=== PATIENT | male | born 1955 | race Caucasian/White ===

== ENCOUNTER 2024-08-20 21:06 | Inpatient (IN) | payer OTHER ==
[2024-08-20 21:53] LABS: Bilirubin Neg (Negative); Blood, Urine 150 (Negative); Clarity Cloudy (Clear); Glucose, Urine (Dipstick) >=1000 mg/dL (Negative); Ketone, Urine 5 mg/dL (Negative); Leukocyte 500 (Negative); Nitrite Negative (Negative); Protein, Urine (Dipstick) 100 mg/dl (Neg-Trace); Specific Gravity, Urine 1.025 (1.005-1.030); Urobilinogen Normal mg/dL (Less than 2)
[2024-08-20 22:11] LABS: Bacteria/HPF 4+ HPF (None Seen); CAUTI Indications for Culture Dysuria,urgency,freq; Squamous Epithelial 0-3 HPF (0-3); Urine Culture Reflex Yes Yes; WBC/HPF Greater than 50 HPF (0-3)
[2024-08-20 22:35] LABS: #Basophils 0.03 10x3/uL (0.0-0.2); #Eosinophils 0.02 10x3/uL (0.0-0.5); #Monocytes 1.93 10x3/uL (0.0-1.1); #Neutrophils 17.09 10x3/uL (1.5-8.4); %Basophils 0.1 % (0.0-2.0); %Eosinophils 0.1 % (0.0-6.0); %Lymphocytes 4.5 % (18.0-47.0); %Monocytes 9.6 % (0.0-10.0); %Neutrophils 84.8 % (40.0-75.0); Hematocrit 30.2 % (38.8-50.0); Hemoglobin 9.9 g/dL (13.5-17.5); Mean Corpuscular HGB CONC 32.8 g/dL (32.0-36.0); Mean Corpuscular Hemoglobin 29.3 pg (27.0-33.0); Mean Corpuscular Volume 89.3 fL (81.2-95.1); Mean Platelet Volume 9.6 fL (7.4-10.4); Platelet Count 121 10x3/uL (150-450); RBC Distribution Width 14.6 % (11.5-14.5); Red Blood Cell (RBC) Count 3.38 10x6/uL (4.32-5.72); White Blood Cell (WBC) Count 20.2 10x3/uL (3.5-10.5)
[2024-08-20 22:57] LABS: ALT (SGPT) 21 U/L (8-55); AST (SGOT) 19 U/L (5-34); Albumin 3.4 g/dL (3.4-4.8); Alkaline Phosphatase 93 U/L (40-110); Anion Gap 14 mmol/L (10-20); BUN (Urea Nitrogen) 27 mg/dL (8.4-25.7); Bilirubin, Total 0.9 mg/dL (0.2-1.2); Calc. Creatinine Clearance 0 mL/min (70-130); Calcium 8.5 mg/dL (7.8-10.44); Carbon Dioxide 21 mmol/L (23-31); Chloride 108 mmol/L (98-107); Estimated GFR 82; Globulin 2.7 g/dL (2.4-3.5); Glucose 228 mg/dL (83-110); Potassium 3.7 mmol/L (3.5-5.1); Protein, Total 6.1 g/dL (5.8-8.1); Sodium 139 mmol/L (136-145)
[2024-08-20] MEDS ORDERED: cefTRIAXone (ROCEPHIN) 2 GM VIAL ONE (23:13)
[2024-08-21] MEDS ORDERED: Ondansetron ODT 4 MG TAB PO PRN (02:06)
[2024-08-21] MEDS ORDERED: Ondansetron PF 4 MG/2 ML Vial IVP PRN (02:06)
[2024-08-21] MEDS ORDERED: Dextrose 5% in Water 1,000 ML IV PRN (02:06)
[2024-08-21] MEDS ORDERED: Glucagon 1 MG/ML KIT IM PRN (02:06)
[2024-08-21] MEDS ORDERED: Dextrose 50% Abboject 50 ML SYRINGE SLOW IVP PRN (02:06)
[2024-08-21] MEDS ORDERED: Acetaminophen 650 MG Suppository PR PRN (02:06)
[2024-08-21] MEDS: Sodium Chloride 0.9% 1,000 ML IV SCH (02:43)
[2024-08-21 03:13] LABS: #Basophils 0.04 10x3/uL (0.0-0.2); #Eosinophils 0.01 10x3/uL (0.0-0.5); #Monocytes 1.93 10x3/uL (0.0-1.1); #Neutrophils 19.84 10x3/uL (1.5-8.4); %Basophils 0.2 % (0.0-2.0); %Lymphocytes 6.4 % (18.0-47.0); %Monocytes 8.2 % (0.0-10.0); %Neutrophils 84.5 % (40.0-75.0); Hematocrit 29.9 % (38.8-50.0); Hemoglobin 9.7 g/dL (13.5-17.5); Mean Corpuscular HGB CONC 32.4 g/dL (32.0-36.0); Mean Corpuscular Hemoglobin 28.8 pg (27.0-33.0); Mean Corpuscular Volume 88.7 fL (81.2-95.1); Mean Platelet Volume 9.8 fL (7.4-10.4); Platelet Count 117 10x3/uL (150-450); RBC Distribution Width 14.8 % (11.5-14.5); Red Blood Cell (RBC) Count 3.37 10x6/uL (4.32-5.72); White Blood Cell (WBC) Count 23.6 10x3/uL (3.5-10.5)
[2024-08-21 03:20] VITALS: BMI 35.6
[2024-08-21 03:22] LABS: Anion Gap 14 mmol/L (10-20); BUN (Urea Nitrogen) 26 mg/dL (8.4-25.7); Calc. Creatinine Clearance 120 mL/min (70-130); Calcium 8.1 mg/dL (7.8-10.44); Carbon Dioxide 20 mmol/L (23-31); Chloride 110 mmol/L (98-107); Estimated GFR 88; Glucose 247 mg/dL (83-110); Potassium 3.7 mmol/L (3.5-5.1); Sodium 140 mmol/L (136-145)
[2024-08-21] MEDS: Insulin Lispro 100 UNIT/ML 10 ML VIAL SC PRN (06:30)
[2024-08-21] MEDS: Rivaroxaban 10 MG TAB PO SCH (09:56)
[2024-08-21] MEDS: Acetaminophen 325 MG TAB PO PRN (17:01)
[2024-08-21] MEDS: Atorvastatin Calcium 40 MG TAB PO SCH (21:03)
[2024-08-22] MEDS: cefTRIAXone\\ROCEPHIN 1 GM in Sodium Chloride 0.9% 100 ML IVPB SCH (03:44)
[2024-08-22 08:17] LABS: #Basophils 0.02 10x3/uL (0.0-0.2); #Eosinophils 0.02 10x3/uL (0.0-0.5); #Monocytes 0.46 10x3/uL (0.0-1.1); #Neutrophils 10.66 10x3/uL (1.5-8.4); %Basophils 0.2 % (0.0-2.0); %Eosinophils 0.2 % (0.0-6.0); %Monocytes 3.8 % (0.0-10.0); %Neutrophils 88.3 % (40.0-75.0); Hematocrit 29.3 % (38.8-50.0); Hemoglobin 9.5 g/dL (13.5-17.5); Mean Corpuscular HGB CONC 32.4 g/dL (32.0-36.0); Mean Corpuscular Hemoglobin 28.5 pg (27.0-33.0); RBC Distribution Width 14.8 % (11.5-14.5); Red Blood Cell (RBC) Count 3.33 10x6/uL (4.32-5.72); White Blood Cell (WBC) Count 12.1 10x3/uL (3.5-10.5)
[2024-08-22 08:23] LABS: Mean Platelet Volume 10.6 fL (7.4-10.4); Platelet Count 106 10x3/uL (150-450)
[2024-08-22 08:29] LABS: Anion Gap 11 mmol/L (10-20); BUN (Urea Nitrogen) 24 mg/dL (8.4-25.7); Calc. Creatinine Clearance 134 mL/min (70-130); Carbon Dioxide 20 mmol/L (23-31); Chloride 109 mmol/L (98-107); Estimated GFR 94; Glucose 189 mg/dL (83-110); Potassium 4.3 mmol/L (3.5-5.1); Sodium 136 mmol/L (136-145)
[2024-08-22] MEDS ORDERED: Morphine 2 MG/ML VIAL SLOW IVP PRN (15:13)
[2024-08-22] MEDS ORDERED: LevoFLOXacin 750 mg/D5W 750 MG in Premix 1 BAG IVPB SCH (15:30)
[2024-08-22 19:36] LABS: Hemoglobin 9.9 g/dL (13.5-17.5); INR-International Normal Ratio 1.7; PTT 38.1 sec (22.0-33.0); Prothrombin Time 17.7 sec (9.5-12.1)
[2024-08-23 04:25] LABS: #Basophils 0.01 10x3/uL (0.0-0.2); #Eosinophils 0.03 10x3/uL (0.0-0.5); #Monocytes 0.54 10x3/uL (0.0-1.1); #Neutrophils 5.58 10x3/uL (1.5-8.4); %Basophils 0.1 % (0.0-2.0); %Eosinophils 0.4 % (0.0-6.0); %Lymphocytes 13.7 % (18.0-47.0); %Monocytes 7.5 % (0.0-10.0); %Neutrophils 77.9 % (40.0-75.0); Hematocrit 28.1 % (38.8-50.0); Hemoglobin 9.1 g/dL (13.5-17.5); Mean Corpuscular HGB CONC 32.4 g/dL (32.0-36.0); Mean Corpuscular Hemoglobin 28.4 pg (27.0-33.0); Mean Corpuscular Volume 87.8 fL (81.2-95.1); Mean Platelet Volume 10.7 fL (7.4-10.4); Platelet Count 109 10x3/uL (150-450); RBC Distribution Width 14.7 % (11.5-14.5); White Blood Cell (WBC) Count 6.8 10x3/uL (3.5-10.5)
[2024-08-23] MEDS: Carvedilol 6.25 MG TAB PO SCH (21:55)
[2024-08-23] MEDS: metFORMIN 500 MG TAB PO SCH (21:55)
[2024-08-23] MEDS: Atorvastatin Calcium 40 MG TAB PO SCH (21:55)
[2024-08-23] MEDS: Calcium Carbonate 600 MG + Vit D TAB PO SCH (21:56)
[2024-08-24 03:53] LABS: #Basophils 0.01 10x3/uL (0.0-0.2); #Eosinophils 0.07 10x3/uL (0.0-0.5); #Monocytes 0.63 10x3/uL (0.0-1.1); #Neutrophils 3.62 10x3/uL (1.5-8.4); %Basophils 0.2 % (0.0-2.0); %Eosinophils 1.3 % (0.0-6.0); %Monocytes 11.4 % (0.0-10.0); %Neutrophils 65.6 % (40.0-75.0); Hematocrit 29.7 % (38.8-50.0); Hemoglobin 9.6 g/dL (13.5-17.5); Mean Corpuscular HGB CONC 32.3 g/dL (32.0-36.0); Mean Corpuscular Hemoglobin 28.4 pg (27.0-33.0); Mean Corpuscular Volume 87.9 fL (81.2-95.1); Mean Platelet Volume 10.3 fL (7.4-10.4); Platelet Count 127 10x3/uL (150-450); RBC Distribution Width 14.8 % (11.5-14.5); Red Blood Cell (RBC) Count 3.38 10x6/uL (4.32-5.72); White Blood Cell (WBC) Count 5.7 10x3/uL (3.5-10.5)
[2024-08-24] MEDS: Clopidogrel Bisulfate 75 MG TAB PO SCH (09:19)
[2024-08-25] MEDS: Isosorbide Mononitrate 30 MG ER.TAB PO SCH (08:59)
[2024-08-25] MEDS: Terazosin HCl 1 MG CAP PO SCH (20:52)
[2024-08-27] MEDS: metFORMIN 850 MG TAB PO SCH (09:30)
[2024-08-27 20:36] VITALS: BP 166/81
[2024-08-27 22:05] VITALS: TEMP 98.1
== END 2024-08-27 21:28 | DRG 872 ==
LOC: CSHERS 21:06 → EEVIPCON 08-21 01:54 → CSHERHOLD 08-21 01:54 → CSHTELE 08-21 09:15 → OBSVTOIN 08-21 15:19
PROVIDERS: ADMIT Family Medicine; ATTEND Family Medicine
DX: A41.51 Sepsis due to Escherichia coli [E. coli] (principal); I48.20 Chronic atrial fibrillation, unspecified; N39.0 Urinary tract infection, site not specified; K21.9 Gastro-esophageal reflux disease without esophagitis; E78.5 Hyperlipidemia, unspecified; D50.9 Iron deficiency anemia, unspecified; I25.10 Atherosclerotic heart disease of native coronary artery without angina pectoris; I10 Essential (primary) hypertension; E11.40 Type 2 diabetes mellitus with diabetic neuropathy, unspecified; F41.9 Anxiety disorder, unspecified; N40.0 Benign prostatic hyperplasia without lower urinary tract symptoms; R65.20 Severe sepsis without septic shock; Z95.5 Presence of coronary angioplasty implant and graft; Z95.0 Presence of cardiac pacemaker; M19.90 Unspecified osteoarthritis, unspecified site
CPT/HCPCS: 36415; 36416; 71045; 76770; 80048; 80053; 81001; 83605; 85025; 85610; 85730; 87040; 87077; 87086; 87186; 87428; 93005; 94760; 94762; 96374; G0378; J0696; J1815; J7030